=== PATIENT | male | born 1955 | race Caucasian/White ===

== ENCOUNTER 2017-07-22 06:22 | Emergency (ER) | payer MEDICARE ==
[2017-07-22] MEDS ORDERED: Sodium Chloride 0.9% 1000 ML 1,000 ML IV STA ×2 (06:32→08:05)
[2017-07-22] MEDS ORDERED: BENADRYL 50 MG/ML IV ONE (06:32)
[2017-07-22] MEDS ORDERED: Hydromorphone 1 mg/ml Ampule IV ONE ×2 (06:32→08:05)
[2017-07-22] MEDS ORDERED: BENADRYL 50 MG/ML ONE (06:40)
[2017-07-22] MEDS ORDERED: Hydromorphone 1 mg/ml Ampule ONE ×2 (06:40→08:14)
[2017-07-22] MEDS ORDERED: Sodium Chloride 0.9% 1000 ML 1,000 ML ONE ×2 (06:40→08:15)
--- NOTE | 2017-07-22 06:40 | ERPHSYRPT ---
- History of Present Illness Historian: patient Patient Subjective Stated Complaint: Left Flank Pain Triage Nursing Assessment: Left flank pain beginning yesterday. Pt states radiation into abdomin. Pt states hx of kid allyson stones and states "this feels like a kidney stone. Pt states difficulty urination. Pt denies other complaints. Pt appears anxious at this time, skin pwd. Timing/Duration: yesterday (7PM) Quality: sharpness Severity of Pain-Max: severe Severity of Pain-Current: severe Hx Tetanus, Diphtheria Vaccination/Date Given: No Hx Influenza Vaccination/Date Given: No Hx Pneumococcal Vaccination/Date Given: No Immunizations Up to Date: No <LIVIA ALCARAZ - Last Filed: 07/22/17 06:36> <TIAGO PLAZA - Last Filed: 07/22/17 08:55> - History of Present Illness Time Seen by Provider: 07/22/17 06:32 Physician History: CC: left flank pain Hx: 61 y/o patient from [facility] here visiting his father for holidays. He has hx of kidney stones disease. He has left flank pain radiating to the abdomen since 7PM last night. No vomiting or fever. No prior abdominal surgeries. This feels like prior kidney stones. (LIVIA ALCARAZ) Allergies/Adverse Reactions: No Known Drug Allergies Allergy (Unverified 07/22/17 06:34) Home Medications: Atorvastatin Calcium [Lipitor] 40 mg PO DAILY 07/22/17 [History] Carvedilol 12.5 mg [Coreg 12.5 mg] 12.5 mg PO BID 07/22/17 [History] Gabapentin [Neurontin] 600 mg PO TID 07/22/17 [History] Meclizine HCl 25 mg [Antivert 25 mg] 25 mg PO TID 07/22/17 [History] Omeprazole 20 MG [Prilosec 20 mg] 40 mg PO DAILY 07/22/17 [History] Sertraline HCl 50 mg [Zoloft 50 mg Tablet] 100 mg PO DAILY 07/22/17 [History ] Trazodone HCl 50 mg [Desyrel 50 mg] 100 mg PO QHS 07/22/17 [History] - Review of Systems Constitutional: No Fever, No Chills Eyes: No Symptoms Ears, Nose, & Throat: No Symptoms Respiratory: No Cough Cardiac: No Chest Pain Abdominal/Gastrointestinal: Abdominal Pain, No Vomiting, No Diarrhea Genitourinary Symptoms: Dysuria, Hesitancy, Flank Pain, No Testicle Pain Musculoskeletal: Back Pain Skin: No Rash Neurological: No Focal Weakness, No Headache, No Parasthesia All Other Systems: Reviewed and Negative <LIVIA ALCARAZ - Last Filed: 07/22/17 06:36> - Past Medical History Pertinent Past Medical History: Yes Cardiac History: Hypertension History: Renal Disease (kidney) - Social History Smoking Status: Never smoker Exposure to second hand smoke: No Patient Lives Alone: No <LIVIA ALCARAZ Last Filed: 07/22/17 06:36> - Physical Exam General Appearance: alert, other (writhing on the bed, uncomfortable appearing) Eye Exam: PERRL/EOMI Ears, Nose, Throat Exam: normal ENT inspection, moist mucous membranes Neck Exam: normal inspection, non-tender, supple Respiratory Exam: normal breath sounds Cardiovascular Exam: regular rate/rhythm Gastrointestinal/Abdomen Exam: soft, tenderness (mild epigastrum) Male Genitalia Exam: normal genitalia, No testicular tenderness Extremity Exam: normal inspection Neurologic Exam: alert, oriented x 3, sensation nml, No motor deficits Skin Exam: warm, dry, No rash SpO2 Interpretation: normal SpO2: 95 Oxygen Delivery: Room Air <LIVIA ALCARAZ - Last Filed: 07/22/17 06:36> - Nursing Vital Signs Nursing Vital Signs: Initial Vital Signs Temperature 97.5 F 07/22/17 06:29 Pulse Rate 70 07/22/17 06:29 Respiratory Rate 14 07/22/17 06:29 Blood Pressure 135/100 07/22/17 06:29 O2 Sat by Pulse Oximetry 95 07/22/17 06:29 Pain Scale Pain Intensity 4 - Course Nursing assessment & vital signs reviewed: Yes <LIVIA ALCARAZ - Last Filed: 07/22/17 06:36> - CT Exams Abdomen/Pelvis CT Interpretation: Tele-radiologist Report (Ct Abdomen and Pelvis without contrast: no acute findings) <TIAGO PLAZA - Last Filed: 07/22/17 08:55> Ordered Tests: Active Orders 24 hr Category Date Time Status Clean Catch Urine Specimen STAT Care 07/22/17 06:32 Active IV Insertion STAT Care 07/22/17 06:32 Active ABDOMEN AND PELVIS W/0 CONTRAS [CT] Stat Exams 07/22/17 06:32 Taken CBC W DIFF Stat Lab 07/22/17 06:50 Completed CMP Stat Lab 07/22/17 06:50 Completed LIPASE Stat Lab 07/22/17 06:50 Completed UA W/RFX UR CULTURE Stat Lab 07/22/17 07:30 Completed Urine Triage Profile Stat Lab 07/22/17 07:37 Completed Medication Summary Generic Name Dose Route Start Last Admin Trade Name Freq PRN Reason Stop Dose Admin Sodium Chloride 1,000 mls @ 999 mls/hr 07/22/17 08:05 07/22/17 08:16 Sodium Chloride 0.9% 1000 Ml IV 07/22/17 09:05 999 mls/hr .Q1H1M STA Administration Discontinued Medications Generic Name Dose Route Start Last Admin Trade Name Freq PRN Reason Stop Dose Admin Diphenhydramine HCl 25 mg 07/22/17 06:32 07/22/17 06:43 Benadryl 50 Mg/Ml IV 07/22/17 06:33 25 mg STAT ONE Administration Diphenhydramine HCl Confirm 07/22/17 06:40 Benadryl 50 Mg/Ml Administered 07/22/17 06:41 Dose 50 mg .ROUTE .STK-MED ONE Hydromorphone HCl 1 mg 07/22/17 06:32 07/22/17 06:43 Hydromorphone 1 Mg/Ml Ampule IV 07/22/17 06:33 1 mg STAT ONE Administration Hydromorphone HCl Confirm 07/22/17 06:40 Hydromorphone 1 Mg/Ml Ampule Administered 07/22/17 06:41 Dose 1 mg .ROUTE .STK-MED ONE Hydromorphone HCl 0.5 mg 07/22/17 08:05 07/22/17 08:16 Hydromorphone 1 Mg/Ml Ampule IV 07/22/17 08:06 0.5 mg STAT ONE Administration Hydromorphone HCl Confirm 07/22/17 08:14 Hydromorphone 1 Mg/Ml Ampule Administered 07/22/17 08:15 Dose 1 mg .ROUTE .STK-MED ONE Sodium Chloride 1,000 mls @ 999 mls/hr 07/22/17 06:32 07/22/17 06:43 Sodium Chloride 0.9% 1000 Ml IV 07/22/17 07:32 999 mls/hr .Q1H1M STA Administration Sodium Chloride Confirm 07/22/17 06:40 Sodium Chloride 0.9% 1000 Ml Administered 07/22/17 06:41 Dose 1,000 mls @ ud .ROUTE .STK-MED ONE Sodium Chloride Confirm 07/22/17 08:15 Sodium Chloride 0.9% 1000 Ml Administered 07/22/17 08:16 Dose 1,000 mls @ ud .ROUTE .STK-MED ONE Lab/Rad Data: Laboratory Result Diagrams 07/22/17 06:50 07/22/17 06:50 Laboratory Results 07/22/17 07/22/17 07/22/17 Range/Units 07:37 07:30 06:50 WBC (4.0-10.5) K/mm3 RBC (4.1-5.6) M/mm3 Hgb (12.5-18.0) gm/dl Hct (42-50) % MCV (78-100) fl MCH (26-32) pg MCHC (32-36) g/dl RDW (11.5-14.0) % Plt Count (150-450) K/mm3 MPV (6-9.5) fl Gran % (36.0-66.0) % Lymphocytes % (24.0-44.0) % Monocytes % (0.0-12.0) % Eosinophils % (0.00-5.0) % Basophils % (0.0-0.4) % Basophils # (0-0.4) Sodium 141 (136-145) mEq/L Potassium 4.2 (3.5-5.1) mEq/L Chloride 104 (98-107) mEq/L Carbon Dioxide 27.7 (21-32) mEq/L Anion Gap 13.2 (5-15) MEQ/L BUN 11 (9-20) mg/dL Creatinine 1.15 (0.55-1.30) mg/dl Estimated GFR > 60 ML/MIN Glucose 153 H (70-110) MG/DL Calcium 9.1 (8.5-10.1) mg/dL Total Bilirubin 0.60 (0.2-1.0) mg/dL AST 19 (15-37) U/L ALT 22 (12-78) U/L Alkaline Phosphatase 125 H (46-116) U/L Serum Total Protein 7.2 (6.4-8.2) gm/dL Albumin 3.9 (3.4-5.0) g/dL Lipase 85 (73-393) U/L Ur Collection Type CLEAN CATCH Urine Color YELLOW (YELLOW) Urine Appearance CLEAR (CLEAR) Urine pH 7.0 (5-6) Ur Specific Hardin 1.010 (1.005-1.025) Urine Protein NEGATIVE (Negative) Urine Ketones NEGATIVE (NEGATIVE) Urine Blood NEGATIVE (0-5) Kishor/ul Urine Nitrite NEGATIVE (NEGATIVE) Urine Bilirubin NEGATIVE (NEGATIVE) Urine Urobilinogen 4 (0-1) mg/dL Ur Leukocyte Esterase NEGATIVE (NEGATIVE) Urine Culture Reflexed NO (NO) Urine Glucose NEGATIVE (NEGATIVE) mg/dL Urine Opiates Level NEG. (NEGATIVE) Ur Methadone NEG. (NEGATIVE) Urine Barbiturates NEG. (NEGATIVE) Ur Phencyclidine (PCP) NEG. (NEGATIVE) Urine Amphetamine POS. (NEGATIVE) U Benzodiazepine Level NEG. (NEGATIVE) Urine Cocaine NEG. (NEGATIVE) Urine Marijuana (THC) NEG. (NEGATIVE) Specimen Received 07-2207/22/17 Range/Units 06:50 WBC 10.3 (4.0-10.5) K/mm3 RBC 4.85 (4.1-5.6) M/mm3 Hgb 13.6 (12.5-18.0) gm/dl Hct 44.0 (42-50) % MCV 90.7 (78-100) fl MCH 28.0 (26-32) pg MCHC 30.9 L (32-36) g/dl RDW 13.1 (11.5-14.0) % Plt Count 161 (150-450) K/mm3 MPV 11.3 H (6-9.5) fl Gran % 81.1 H (36.0-66.0) % Lymphocytes % 11.6 L (24.0-44.0) % Monocytes % 4.4 (0.0-12.0) % Eosinophils % 2.6 (0.00-5.0) % Basophils % 0.3 (0.0-0.4) % Basophils # 0.03 (0-0.4) Sodium (136-145) mEq/L Potassium (3.5-5.1) mEq/L Chloride (98-107) mEq/L Carbon Dioxide (21-32) mEq/L Anion Gap (5-15) MEQ/L BUN (9-20) mg/dL Creatinine (0.55-1.30) mg/dl Estimated GFR ML/MIN Glucose (70-110) MG/DL Calcium (8.5-10.1) mg/dL Total Bilirubin (0.2-1.0) mg/dL AST (15-37) U/L ALT (12-78) U/L Alkaline Phosphatase (46-116) U/L Serum Total Protein (6.4-8.2) gm/dL Albumin (3.4-5.0) g/dL Lipase (73-393) U/L Ur Collection Type Urine Color (YELLOW) Urine Appearance (CLEAR) Urine pH (5-6) Ur Specific Hardin (1.005-1.025) Urine Protein (Negative) Urine Ketones (NEGATIVE) Urine Blood (0-5) Kishor/ul Urine Nitrite (NEGATIVE) Urine Bilirubin (NEGATIVE) Urine Urobilinogen (0-1) mg/dL Ur Leukocyte Esterase (NEGATIVE) Urine Culture Reflexed (NO) Urine Glucose (NEGATIVE) mg/dL Urine Opiates Level (NEGATIVE) Ur Methadone (NEGATIVE) Urine Barbiturates (NEGATIVE) Ur Phencyclidine (PCP) (NEGATIVE) Urine Amphetamine (NEGATIVE) U Benzodiazepine Level (NEGATIVE) Urine Cocaine (NEGATIVE) Urine Marijuana (THC) (NEGATIVE) Specimen Received <LIVIA ALCARAZ - Last Filed: 07/22/17 06:36> - Progress Progress: improved <TIAGO PLAZA - Last Filed: 07/22/17 08:55> - Progress Progress Note: 07/22/17 06:[address] to assess for renal stone disease. 07/22/17 07:[address] Plaza for further care and disposition. (LIVIA ALCARAZ) 07/22/17 07:39 This is a 61-year-old white male with history of chronic back pain, high blood pressure, atherosclerotic coronary artery disease states he's had a [place] in the past also history of high blood pressure kidney stones He arrives with complaint of pain in the left flank radiating to the abdomen symptoms since 7 PM last night. No vomiting no dysuria no fevers. Past medical history includes chronic back pain, high blood pressure, atherosclerotic coronary artery disease, myocardial infarction, kidney stones. Past surgical history includes back surgery, neck surgery. Patient states he is on "Oxy" at home he states he receives this from a Dr. Weller in [place] He is here visiting Physical examination well-developed well-nourished white male he has a fairly frequent random movements . Head is atraumatic normocephalic. Eyes PERRLA EOMI fundi unremarkable. Ears TMs avilez intact bilaterally. Nose is clear. Throat is clear. Neck is supple. Lungs are clear. Heart regular rate and rhythm without murmur. Abdomen mild left lower quadrant abdominal tenderness positive bowel sounds negative masses negative rebound. Back left flank tenderness. Extremities full range of motion pulse equal symmetrical 2 over 4. Neuro cranial nerves II through XII are intact DTRs symmetrical 2 over 4 Manuel Coma Scale 15... CT abdomen his back no acute intra-abdominal processes noted. Will await labs patient has received ,Dilaudid, IV normal saline, and Benadryl per Dr. Alcaraz. 07/22/17 08:06 Patient's labs are normal with the exception that he has alkaline phosphatase of 125 glucose 153 and a urine drug screen that shows a positive for amphetamines. Patient is still having pain in the left upper quadrant.. Inspect has been reviewed patient states he is on oxycodone at home. Inspection shows last fill of his oxycodone was December 2015 . Will give patient a second liter of fluids the 0.5 mg more hydromorphone . Will reevaluate after fluids have been instilled. 07/22/17 08:10 Patient now states he has right upper quadrant abdominal pain radiating to his back. lipase is normal. 07/22/17 08:14 07/22/17 08:25 I have offered to discuss the case with Dr. Billy for possible admission, patient states he does not want admission. States he will follow-up with his family doctor. Patient has just received the 0.5 mg of hydromorphone IV he is receiving a second liter of normal saline. Will plan on discharge. (TIAGO PLAZA) <LIVIA ALCARAZ - Last Filed: 07/22/17 06:36> - Departure Time of Disposition: 08:54 Departure Disposition: Home Critical Care Time: No <TIAGO PLAZA - Last Filed: 07/22/17 08:55> - Departure Clinical Impression: Left flank pain Abdominal pain Qualifiers: Abdominal location: left upper quadrant Qualified Code(s): R10.12 - Left upper quadrant pain Condition: Fair Referrals: RAMIREZ CARROLL PA [Primary Care Provider] - Additional Instructions: Return home. Plenty of fluids clear fluids only 24-48 hours if abdominal pain. Follow-up with your family doctor. Return for acute distress or for severe symptoms.
[2017-07-22 07:01] LABS: BASOPHIL % 0.3 % (0.0-0.4); Basophil (Absolute #) 0.03 (0-0.4); Eosinophil % 2.6 % (0.00-5.0); Eosinophil (Absolute #) 0.27 (0-0.5); Granulocyte Absolute (ANC) 8.38 (1.4-6.9); Granulocytes % 81.1 % (36.0-66.0); Hemoglobin 13.6 gm/dl (12.5-18.0); Lymphocytes % 11.6 % (24.0-44.0); Mean Cell Volume 90.7 fl (78-100); Mean Corpuscular Hgb Concent. 30.9 g/dl (32-36); Mean Platelet Volume 11.3 fl (6-9.5); Monocyte (Absolute #) 0.45 (0.0-1.3); Monocytes % 4.4 % (0.0-12.0); Platelet Count 161 K/mm3 (150-450); Red Blood Count 4.85 M/mm3 (4.1-5.6); Red Cell Distribution Width 13.1 % (11.5-14.0); White Blood Count 10.3 K/mm3 (4.0-10.5)
[2017-07-22 07:25] LABS: ALBUMIN 3.9 g/dL (3.4-5.0); ALKALINE PHOSPHATASE 125 U/L (46-116); ANION GAP 13.2 MEQ/L (5-15); BLOOD UREA NITROGEN 11 mg/dL (9-20); CHLORIDE 104 mEq/L (98-107); Calcium 9.1 mg/dL (8.5-10.1); Carbon Dioxide 27.7 mEq/L (21-32); Creatinine 1 1.15 mg/dl (0.55-1.30); EST GLOMERULAR FILTRATION RATE > 60 ML/MIN; Glucose 153 MG/DL (70-110); LIPASE 85 U/L (73-393); Potassium 4.2 mEq/L (3.5-5.1); SGOT/AST 19 U/L (15-37); SGPT/ALT 22 U/L (12-78); SODIUM 141 mEq/L (136-145); Total Protein 7.2 gm/dL (6.4-8.2)
[2017-07-22 07:38] LABS: Appearance CLEAR (CLEAR); Bilirubin NEGATIVE (NEGATIVE); Blood NEGATIVE Ery/ul (0-5); Glucose NEGATIVE (NEGATIVE); Ketones NEGATIVE (NEGATIVE); Leukocyte Esterase NEGATIVE (NEGATIVE); Nitrite NEGATIVE (NEGATIVE); Protein,Urine Dip NEGATIVE (Negative); Urobilinogen 4 mg/dL (0-1)
[2017-07-22 07:48] LABS: Amphetamine,Urine POS. (NEGATIVE); Barbiturate,Urine NEG. (NEGATIVE); Benzodiazepine,Urine NEG. (NEGATIVE); Cocaine,Urine NEG. (NEGATIVE); Methadone,Urine NEG. (NEGATIVE); Opiate,Urine NEG. (NEGATIVE); PCP,Urine NEG. (NEGATIVE); THC,Urine NEG. (NEGATIVE)
[2017-07-22 09:25] VITALS: BP 145/60; PULSE 80; O2SAT 97
--- NOTE | 2017-07-22 09:36 | XRAY ---
Indication: General abdominal pain. Dysuria. History renal stone. Multiple contiguous axial images obtained through the abdomen and pelvis without contrast as ordered. Comparison: None. Lung bases demonstrates left base subsegmental atelectasis/scarring. No infiltrate or effusion. Heart is not enlarged. Stomach is mildly fluid distended. Noncontrasted stomach and bowel loops appear nonobstructed. Mild diffuse scattered colonic fecal debris throughout. Also scattered colonic diverticulosis without diverticulitis. Normal appendix. No free fluid/air. Gallbladder is moderately distended without gallstones or biliary distention. Tiny 5 mm hepatic cyst. Remaining liver, pancreas, spleen, adrenal glands, kidneys, ureters, and bladder appear unremarkable for noncontrast exam. Mild aortoiliac calcifications without AAA. Osseous structures intact L2-L4 posterior fusion surgery and laminectomy. Small fatty right inguinal hernia. Impression: 1. Mild fecal stasis without obstruction. Colonic diverticulosis without diverticulitis. 2. Distended gallbladder without gallstones. Outpatient gallbladder sonogram may yield further information if clinically warranted. 3. Tiny hepatic cyst and fatty right inguinal hernia. 4. No acute intra-abdominal/pelvic abnormalities on this noncontrast exam. Comment: Preliminary interpretation was made by [facility]. No critical discrepancy. CT DI 23.64
== END 2017-07-22 09:22 | disposition home or self-care (01) ==
LOC: ED 06:22
DX: R10.12 Left upper quadrant pain (principal); M54.9 Dorsalgia, unspecified; G89.29 Other chronic pain; F45.42 Pain disorder with related psychological factors; I10 Essential (primary) hypertension; I25.10 Atherosclerotic heart disease of native coronary artery without angina pectoris; I25.2 Old myocardial infarction; Z79.899 Other long term (current) drug therapy
CPT/HCPCS: 36000; 36415; 74176; 80053; 80307; 81002; 83690; 85025; 96360; 96361; 96374; 96375; 96376; 99284; J1170; J1200